=== PATIENT | male | born 1965 | race Caucasian/White ===

== ENCOUNTER 2024-10-03 08:44 | Emergency (ER) | payer SELFPAY ==
[~2024-10-03] VITALS: Ht 167.6 cm; Wt 93.8 kg
[2024-10-03 08:48] VITALS: BP 183/89; TEMP 96.8; O2SAT 98
== END 2024-10-03 09:04 | disposition left against medical advice (07) ==
LOC: M ED 08:44
DX: Z53.21 Procedure and treatment not carried out due to patient leaving prior to being seen by health care provider (principal)